=== PATIENT | male | born 1985 | race African-American/Black ===

== ENCOUNTER 2018-01-29 12:10 | Emergency (ER) | payer SELFPAY ==
[~2018-01-29] VITALS: Ht 175.3 cm; Wt 81.6 kg
[2018-01-29 13:40] LABS: Urine WBC None Seen /hpf (0 - 3)
[2018-01-29 14:11] LABS: Urine Bacteria NONE SEEN /hpf (None Seen); Urine Blood Negative /uL (Negative); Urine Specific Gravity 1.003 (1.001-1.035)
[2018-01-29 14:26] LABS: Cocaine Screen, Urine NEGATIVE (NEGATIVE)
[2018-01-29 14:30] LABS: Basophils # (auto) 0 uL; Basophils % (auto) 0.5 % (0.0-2.0); Eosinophils # (auto) 0.1 uL; Eosinophils % (auto) 2.1 % (0.0-7.0); Hematocrit 45.4 % (41.0-53.0); Hemoglobin 15.3 g/dL (13.5-17.5); Lymphocytes # (auto) 0.6 uL; Lymphocytes % (auto) 14.2 % (10.0-50.0); Mean Corpuscular Hgb Conc. 33.7 g/dL (32.0-36.0); Mean Corpuscular Volume 97.8 fL (80.0-100.0); Monocytes # (auto) 0.3 uL; Monocytes % (auto) 7.7 % (0.0-12.0); Neutrophils # (auto) 3.4 uL; Neutrophils % (auto) 75.5 % (37.0-80.0); Platelet Count (auto) 313 10^3/uL (140-450); Red Blood Cells 4.64 10^6/uL (4.5-5.90); White Blood Cell 4.5 10^3/uL (4.4-10.8)
[2018-01-29 14:39] LABS: Alcohol, Urine < 3.0 mg/dL (0-5); Amphetamine Screen, Urine NEGATIVE (NEGATIVE); Barbiturate Scree,Urine NEGATIVE (NEGATIVE); Benzodiazephine Screen, Urine NEGATIVE (NEGATIVE); Cannabinoid Screen, Urine NEGATIVE (NEGATIVE); Opiate Scree,Urine NEGATIVE (NEGATIVE); Phencyclidine Screen, Urine NEGATIVE (NEGATIVE)
[2018-01-29 14:42] LABS: Albumin 4.7 g/dL (3.4-5.0); BUN/Creatinine Ratio 7.2; Calcium 9.2 mg/dL (8.5-10.1); Potassium 3.8 mmol/L (3.5-5.1)
[2018-01-29 14:45] LABS: Bilirubin, Total 0.8 mg/dL (0.2-1.0); Total Protein 8.5 g/dL (6.4-8.2)
[2018-01-29 14:54] VITALS: BP 147/94
== END 2018-01-29 16:30 | disposition home or self-care (01) ==
LOC: ER 12:11
DX: F41.9 Anxiety disorder, unspecified (principal); F17.210 Nicotine dependence, cigarettes, uncomplicated
CPT/HCPCS: 36415; 80053; 80307; 81001; 85025; 93005